=== PATIENT | male | born 1970 | race African-American/Black ===

== ENCOUNTER 2019-05-03 09:57 | Emergency (ER) | payer MEDICAID ==
[~2019-05-03] VITALS: Ht 175.3 cm; Wt 108.9 kg
[2019-05-03 10:46] LABS: Basophils # (auto) 0.1 uL; Basophils % (auto) 0.7 % (0.0-2.0); Eosinophils # (auto) 0.2 uL; Eosinophils % (auto) 1.7 % (0.0-7.0); Hematocrit 44.4 % (41.0-53.0); Lymphocytes # (auto) 1.9 uL; Lymphocytes % (auto) 19.7 % (10.0-50.0); Mean Corpuscular Hemoglobin 29.2 pg (28.0-32.0); Mean Corpuscular Hgb Conc. 33.8 g/dL (32.0-36.0); Mean Corpuscular Volume 86.3 fL (80.0-100.0); Neutrophils # (auto) 6.5 uL; Neutrophils % (auto) 67.9 % (37.0-80.0); Platelet Count (auto) 323 10^3/uL (140-450); Red Blood Cells 5.14 10^6/uL (4.5-5.90); Red Cell Distribution Width 15.4 % (11.8-14.3); White Blood Cell 9.6 10^3/uL (4.4-10.8)
[2019-05-03 11:08] LABS: Albumin 4.1 g/dL (3.4-5.0); Calcium 9.8 mg/dL (8.5-10.1); Potassium 3.7 mmol/L (3.5-5.1)
[2019-05-03 11:12] LABS: BUN/Creatinine Ratio 8.4; Bilirubin, Total 0.5 mg/dL (0.2-1.0); Total Protein 8.2 g/dL (6.4-8.2)
[2019-05-03] MEDS ORDERED: IOHEXOL 300 MG/ML 100ML BOTTLE IJ ONE (11:32)
[2019-05-03 11:49] LABS: Urine Bacteria NONE SEEN /hpf (None Seen); Urine Blood 3+ /uL (Negative); Urine Hyaline Cast FEW /lpf (0 - 2); Urine Mucus FEW (None Seen); Urine Specific Gravity 1.018 (1.001-1.035); Urine WBC 20 /hpf (0 - 3)
[2019-05-03] MEDS ORDERED: SODIUM CHLORIDE 0.9% 1,000 ML IV ONE (12:15)
[2019-05-03] MEDS ORDERED: KETOROLAC TROMETH 30 MG/ML 1ML VIAL IV ONE (12:15)
[2019-05-03 13:12] VITALS: BP 126/73
[2019-05-03] MEDS ORDERED: cefTRIAXone 1GM/50ML D5W 50 ML IV ONE (14:15)
== END 2019-05-03 14:31 | disposition home or self-care (01) ==
LOC: ER 10:05
DX: N43.3 Hydrocele, unspecified (principal); R31.9 Hematuria, unspecified; Z85.46 Personal history of malignant neoplasm of prostate; Z87.442 Personal history of urinary calculi; J45.909 Unspecified asthma, uncomplicated
CPT/HCPCS: 36415; 74177; 76870; 80053; 81001; 85025; 96365; 96375; 99284; J0696; J1885; Q9967

== ENCOUNTER 2023-01-28 15:14 | Emergency (ER) | payer MEDICAID ==
[~2023-01-28] VITALS: Ht 175.3 cm; Wt 105.8 kg
[2023-01-28 15:14] VITALS: BP 123/83; PULSE 69; RESP 16; O2SAT 95
== END 2023-01-28 22:24 | disposition left against medical advice (07) ==
LOC: ER 15:14
DX: T18.8XXA Foreign body in other parts of alimentary tract, initial encounter (principal); J45.909 Unspecified asthma, uncomplicated; F17.210 Nicotine dependence, cigarettes, uncomplicated; Z85.9 Personal history of malignant neoplasm, unspecified; W44.8XXA Other foreign body entering into or through a natural orifice, initial encounter; Y93.89 Activity, other specified; Y92.89 Other specified places as the place of occurrence of the external cause; Y99.8 Other external cause status
CPT/HCPCS: 70360

== ENCOUNTER 2023-05-06 20:15 | Emergency (ER) | payer MEDICAID ==
[~2023-05-06] VITALS: Ht 175.3 cm; Wt 109.1 kg
[2023-05-06 20:40] VITALS: BP 132/74; PULSE 72; RESP 15; TEMP 97.5; O2SAT 98
== END 2023-05-06 23:33 | disposition home or self-care (01) ==
LOC: ER 20:15
DX: M79.18 Myalgia, other site (principal); M54.50 Low back pain, unspecified; J45.909 Unspecified asthma, uncomplicated; F17.210 Nicotine dependence, cigarettes, uncomplicated

== ENCOUNTER 2023-12-17 14:37 | Emergency (ER) | payer MEDICAID ==
[~2023-12-17] VITALS: Ht 175.3 cm; Wt 106.0 kg
[2023-12-17 15:00] VITALS: BP 137/84; PULSE 72; RESP 18; TEMP 97.7; O2SAT 99
[2023-12-17] MEDS: KETOROLAC TROMETH 60MG/2ML VIAL IM ONE (15:41)
[2023-12-17] MEDS ORDERED: TRAM-626 PO (15:57)
== END 2023-12-17 16:05 | disposition home or self-care (01) ==
LOC: ER 14:37
DX: M77.8 Other enthesopathies, not elsewhere classified (principal); J45.909 Unspecified asthma, uncomplicated; F17.210 Nicotine dependence, cigarettes, uncomplicated
CPT/HCPCS: 73030; 96372; 99283; J1885

== ENCOUNTER 2024-04-09 08:22 | Inpatient (IN) | payer MEDICAID ==
[~2024-04-09] VITALS: Ht 175.3 cm; Wt 103.7 kg
[~2024-04-09 08:22] MED LIST: TRAM-626 PO
--- NOTE | 2024-04-09 08:40 | ECG ---
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
[2024-04-09] MEDS: ALBUTEROL SULF 2.5 MG/0.5ML(0.5%) NEB SOLN NEB ONE (10:32)
[2024-04-09] MEDS: IPRATROPIUM BROM 0.5 MG/2.5ML INH SOL NEB ONE (10:33)
[2024-04-09] MEDS: methylPREDNISolone SOD SUCC 125 MG/2 ML VL IV ONE (10:39)
[2024-04-09 11:16] LABS: Basophils # (auto) 0 10 ^3/uL (0-0.2); Basophils % (auto) 0.3 % (0.0-2.0); Eosinophils # (auto) 0.1 10 ^3/uL (0-0.8); Eosinophils % (auto) 0.6 % (0.0-7.0); Hematocrit 46.6 % (41.0-53.0); Hemoglobin 15.6 g/dL (13.5-17.5); Lymphocytes # (auto) 1.1 10 ^3/uL (0.4-5.4); Lymphocytes % (auto) 8.4 % (10.0-50.0); Mean Corpuscular Hemoglobin 29.5 pg (28.0-32.0); Mean Corpuscular Hgb Conc. 33.5 g/dL (32.0-36.0); Mean Corpuscular Volume 88.1 fL (80.0-100.0); Monocytes # (auto) 1.5 10 ^3/uL (0-1.3); Monocytes % (auto) 11.2 % (0.0-12.0); Neutrophils # (auto) 10.5 10 ^3/uL (1.6-8.6); Neutrophils % (auto) 79.5 % (37.0-80.0); Nucleated Red Blood Cells % 0.1 %; Platelet Count (auto) 272 10^3/uL (140-450); Red Blood Cells 5.29 10^6/uL (4.5-5.90); Red Cell Distribution Width 15.5 % (11.8-14.3); White Blood Cell 13.2 10^3/uL (4.4-10.8)
--- NOTE | 2024-04-09 11:36 | ED.PDOC ---
History of Present Illness HPI Comments 54 y/o M, with a Hx of asthma, tobacco use, and prostate CA, presents with c/o shortness of breath, cough, chest and throat pain, and fever, today. Patient endorses on unprovoked onset of difficulty breathing and cough that has been progressively worsening since last night, with additional onset of remaining symptoms, this morning. Patient comments on no recent sick contact, travel, or any additional relevant or pertinent Hx. He denies having any chills, nausea, vomiting, palpitations, or other associated symptoms or modifiers at this time. Chief Complaint: Shortness of Breath Time Seen by MD: 09:45 Primary Care Provider: EVELIA Hawkins Notes: Nurses Notes, Medications, Allergies Allergies: Uncoded Allergies: UNKOWN (Allergy, Severe, 04/09/24) Home Meds Active Scripts Tramadol HCl (Tramadol HCl) 50 Mg Tab, 50 MG PO BID, #20 TAB Prov:GAL DEL TORO KAELYN 12/17/23 Information Source: Patient Mode of Arrival: Ambulatory Severity: Moderate Timing: Days Duration: Since onset Prehospital treatment: None Past Medical History PAST MEDICAL HISTORY: Asthma, Cancer (Prostate cancer treated with radiation) Surgical History: Denies all surgeries Family History Family History: Reviewed,noncontributory to illness Social History Smoker: Cigarettes Alcohol: Denies ETOH Use Drugs: Denies Drug Use Lives In: Home Constitutional: reports: fever EENTM: reports: throat pain Respiratory: reports: cough, shortness of breath Cardiovascular: reports: chest pain All Other Systems: Reviewed and Negative (negative unless otherwise stated above or in HPI) Physical Exam General Appearance: Moderate Distress HEENT: Normal ENT Inspection, Pharynx Normal, TMs Normal Neck: Full Range of Motion, Non-Tender, Normal, Normal Inspection Respiratory: Chest Non-Tender, No Accessory Muscle Use, Wheezing Cardiovascular: No Edema, No JVD, No Murmur, No Gallop, Normal Peripheral Pulses, Regular Rate/Rhythm Breast Exam: Deferred Gastrointestinal: No Organomegaly, Non Tender, No Pulsatile Mass, Normal Bowel Sounds, Soft Genitalia: Deferred Pelvic: Deferred Rectal: Deferred Extremities: No calf tenderness, Normal capillary refill, Normal inspection, Normal range of motion, Non-tender, No pedal edema Musculoskeletal : Apperance: Normal Neurologic: Alert, 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 Was a procedure done?: No EKG EKG : Pulse Rate (adult): 95 [place]: Normal Cardiac Rhythm: NSR Block: None Hypertrophy: None ST: Normal Differential Dx Considerations may include: viral syndrome, asthma exacerbation, URI, bronchitis, PNA X-Ray, Labs, Meds, VS Vital Signs Date Time Temp Pulse Resp B/P (MAP) Pulse Ox O2 Delivery O2 Flow Rate FiO2 04/09/24 11:36 95 04/09/24 10:35 16 96 Room Air* 0 21 04/09/24 09:16 98.6 91 20 123/74 (90) 94 98.6 04/09/24 08:39 95 04/09/24 08:33 99.3 97 18 133/92 (106) 97 Lab Test 04/09/24 10:55 Range/Units White Blood Count 13.2 H 4.4-10.8 10^3/uL Red Blood Count 5.29 4.5-5.90 10^6/uL Hemoglobin 15.6 13.5-17.5 g/dL Hematocrit 46.6 41.0-53.0 % Mean Corpuscular Volume 88.1 80.0-100.0 fL Mean Corpuscular Hemoglobin 29.5 28.0-32.0 pg Mean Corpuscular Hemoglobin Concent 33.5 32.0-36.0 g/dL Red Cell Distribution Width 15.5 H 11.8-14.3 % Platelet Count 272 140-450 10^3/uL Mean Platelet Volume 7.9 6.9-10.8 fL Neutrophils (%) (Auto) 79.5 37.0-80.0 % Lymphocytes (%) (Auto) 8.4 L 10.0-50.0 % Monocytes (%) (Auto) 11.2 0.0-12.0 % Eosinophils (%) (Auto) 0.6 0.0-7.0 % Basophils (%) (Auto) 0.3 0.0-2.0 % Neutrophils # (Auto) 10.5 H 1.6-8.6 10 ^3/uL Lymphocytes # (Auto) 1.1 0.4-5.4 10 ^3/uL Monocytes # (Auto) 1.5 H 0-1.3 10 ^3/uL Eosinophils # (Auto) 0.1 0-0.8 10 ^3/uL Basophils # (Auto) 0 0-0.2 10 ^3/uL Nucleated Red Blood Cells 0.1 % Sodium Level 140 136-145 mmol/L Potassium Level 3.5 3.5-5.1 mmol/L Chloride Level 104 98-107 mmol/L Carbon Dioxide Level 26 20-31 mmol/L Anion Gap 10 5-15 Blood Urea Nitrogen 9 9-23 mg/dL Creatinine 1.02 0.700-1.30 mg/dL Glomerular Filtration Rate Calc 88 >90 mL/min BUN/Creatinine Ratio 8.8 L 10.0-20.0 Serum Glucose 98 74-106 mg/dL Calcium Level 10.4 8.7-10.4 mg/dL Current Medications Medications (Trade) Dose Ordered Sig/Lonnie Route Start Time Stop Time Status Last Admin Methylprednisolone Sodium Succinate (Solu Medrol) 125 mg ONCE ONCE IV 04/09/24 10:15 04/09/24 10:16 DC 04/09/24 10:39 Albuterol (Ventolin Medneb) 5 mg ONCE ONCE NEB 04/09/24 10:15 04/09/24 10:16 DC 04/09/24 10:32 Ipratropium [place] (Atrovent Medneb) 0.5 mg ONCE ONCE NEB 04/09/24 10:15 04/09/24 10:16 DC 04/09/24 10:33 Patient alert. Complaining of shortness a breath. Unable to take deep breaths. Slightly tachycardia. Blood pressure within normal limits. WBC elevated. Establish intravenous access. Was given steroid. Was given breathing treatment. Reviewed his previous visit. Explained to the patient. Continue cardiac monitoring. EKG reviewed does not show any acute changes. Chest x-ray reviewed does not show any acute changes. Time of 1ST Reevaluation: 10:15 Reevaluation 1ST: Unchanged Patient Education/Counseling: Diagnosis, Treatment Family Education/Counseling: No Family Present Additional Information I reviewed the following notes from patient's past medical encounters: ED physician documentation on 12/17/23 The following tests were ordered, and results were reviewed by me: BMP, CBC, CXR I reviewed and agreed with the following test results read by other providers: CXR I discussed treatment and results with medical personnel Departure 1 Departure Time of Disposition: 12:39 Impression: Primary Impression: Asthma exacerbation Qualified Codes: J45.901 - Unspecified asthma with (acute) exacerbation Additional Impressions: Acute respiratory distress Pneumonitis Disposition: ADMITTED INPATIENT Admit to: Med Surg Condition: Guarded Critical Care Note Critical Care Time?: No Stability Stability form required: No Heart Score Heart Score: Heart Score Response (Comments) Value History Slightly Suspicious 0 EKG Normal 0 Age 45-64 1 Risk Factors 1 or 2 risk factors 1 Troponin Normal limit 0 Total 2 I personally scribed for GRISEL SELLERS MD ([email or web address]) on 04/09/24 at 11:36. Electronically submitted by Stephon Ortega ([email or web address]). GRISEL SELLERS MD Apr 09, 2024 11:36
[2024-04-09 11:37] LABS: Chloride 104 mmol/L (98-107); Potassium 3.5 mmol/L (3.5-5.1); Sodium 140 mmol/L (136-145)
[2024-04-09 11:38] LABS: Calcium 10.4 mg/dL (8.7-10.4)
[2024-04-09 11:43] LABS: BUN/Creatinine Ratio 8.8 (10.0-20.0); Glucose 98 mg/dL (74-106)
[2024-04-09 11:47] LABS: Blood Urea Nitrogen 9 mg/dL (9-23)
--- NOTE | 2024-04-09 12:02 | DVH ---
CHEST RADIOGRAPH Indication: sob Technique: Single frontal view of the chest was obtained Comparison: None FINDINGS: Lines and Tubes: None Lungs: No focal consolidation. Pleura: No effusion. No pneumothorax. Cardiomediastinal contours: Unremarkable Bones: No acute osseous abnormality. IMPRESSION: 1. No acute cardiopulmonary disease.
[2024-04-09 12:10] LABS: Anion Gap 10 (5-15); Carbon Dioxide 26 mmol/L (20-31)
[2024-04-09] MEDS: cefTRIAXone 1GM/50ML D5W 50 ML IV ONE (14:25)
[2024-04-09] MEDS ORDERED: ALBUTEROL SULF 2.5 MG/0.5ML(0.5%) NEB SOLN NEB PRN (14:30)
[2024-04-09] MEDS ORDERED: IPRATROPIUM BROM 0.5 MG/2.5ML INH SOL NEB PRN (14:30)
[2024-04-09] MEDS ORDERED: ONDANSETRON HCL 4 MG/2 ML VIAL IV PRN (14:30)
[2024-04-09] MEDS ORDERED: MORPHINE SULFATE INJ 2 MG/ml SYRG IV PRN (14:30)
--- NOTE | 2024-04-09 14:39 | DVHHP2 ---
History of Present Illness Reason for Visit: Shortness of breath History of Present Illness This 54-year-old male with past medical history of asthma, tobacco use, and prostate cancer presents in the ED with a chief complaint of shortness of breath. The patient reports shortness of breath associated with sore throat productive cough, fever, and chest congestion started last night. The patient currently denies chest pain, shortness of breath, difficulty in breathing, or other acute symptoms. Past Medical History As stated in HPI Past Surgical History Denies Family History Reviewed, non-contributory to the management of this case. Past Social History The patient lives at home, denies smoking, alcohol or illicit drugs abuse. Review of Systems Constitutional: Yes: Malaise; No: Fever, Chills, Sweats, Weakness, Other Eyes: No: Pain, Vision change, Conjunctivae inflammation, Eyelid inflammation, Other, Redness ENT: Other (Sore throat); No: Ear pain, Ear discharge, Nose pain, Nose discharge, Nose congestion, Mouth pain, Mouth swelling, Throat pain, Throat swelling Respiratory: Cough, Shortness of breath, Other (Chest congestion); No: Dry, SOB with excertion, Wheezing, Hemoptysis, Pleuritic Pain, Sputum, Wheezing Cardiovascular: No: Chest Pain, Palpitations, Orthopnea, Paroxysmal Noc. Dyspnea, Edema, Lt Headedness, Other Gastrointestinal: No: Nausea, Vomiting, Abdominal Pain, Diarrhea, Constipation, Melena, Hematochezia, Other Genitourinary: No Dysuria, No Frequency, No Incontinence, No Hematuria, No Retention, No Other Musculoskeletal: No: other, neck pain, shoulder pain, arm pain, back pain, hand pain, leg pain, foot pain Skin: No: Rash, Lesions, Jaundice, Bruising, Other Neurological: No: Weakness, Numbness, Incoordination, Change in speech, Confusion, Seizures, Other Allergies: Uncoded Allergies: UNKOWN (Allergy, Severe, 04/09/24) Exam Vital Signs Vital Signs Date Time Temp Pulse Resp B/P (MAP) Pulse Ox O2 Delivery O2 Flow Rate FiO2 04/09/24 14:26 109 17 95 Room Air 04/09/24 14:26 98.4 127/86 (100) 98.4 04/09/24 10:35 0 21 General Appearance: Alert, Oriented X3, Cooperative, mild distress HEENT: Atraumatic, PERRLA, EOMI, Mucous membr. moist/pink Respiratory: Clear to auscultation, Normal air movement Cardiovascular: Regular rate, Normal S1, Normal S2, No murmurs Abdominal: Normal bowel sounds, Soft, No tenderness, No hepatospenomegaly Extremities: No clubbing, No cyanosis, No edema, Normal pulses Skin: No rashes, No breakdown, No significant lesion Neuro: Normal gait, Normal speech, Normal tone Psych/Mental Status: Mental status NL Labs/Xrays Labs Test 04/09/24 10:55 Range/Units White Blood Count 13.2 H 4.4-10.8 10^3/uL Red Blood Count 5.29 4.5-5.90 10^6/uL Hemoglobin 15.6 13.5-17.5 g/dL Hematocrit 46.6 41.0-53.0 % Mean Corpuscular Volume 88.1 80.0-100.0 fL Mean Corpuscular Hemoglobin 29.5 28.0-32.0 pg Mean Corpuscular Hemoglobin Concent 33.5 32.0-36.0 g/dL Red Cell Distribution Width 15.5 H 11.8-14.3 % Platelet Count 272 140-450 10^3/uL Mean Platelet Volume 7.9 6.9-10.8 fL Neutrophils (%) (Auto) 79.5 37.0-80.0 % Lymphocytes (%) (Auto) 8.4 L 10.0-50.0 % Monocytes (%) (Auto) 11.2 0.0-12.0 % Eosinophils (%) (Auto) 0.6 0.0-7.0 % Basophils (%) (Auto) 0.3 0.0-2.0 % Neutrophils # (Auto) 10.5 H 1.6-8.6 10 ^3/uL Lymphocytes # (Auto) 1.1 0.4-5.4 10 ^3/uL Monocytes # (Auto) 1.5 H 0-1.3 10 ^3/uL Eosinophils # (Auto) 0.1 0-0.8 10 ^3/uL Basophils # (Auto) 0 0-0.2 10 ^3/uL Nucleated Red Blood Cells 0.1 % Sodium Level 140 136-145 mmol/L Potassium Level 3.5 3.5-5.1 mmol/L Chloride Level 104 98-107 mmol/L Carbon Dioxide Level 26 20-31 mmol/L Anion Gap 10 5-15 Blood Urea Nitrogen 9 9-23 mg/dL Creatinine 1.02 0.700-1.30 mg/dL Glomerular Filtration Rate Calc 88 >90 mL/min BUN/Creatinine Ratio 8.8 L 10.0-20.0 Serum Glucose 98 74-106 mg/dL Calcium Level 10.4 8.7-10.4 mg/dL PROCEDURE(s): CXRP - CHEST PORTABLE REASON: sob ORDER NUMBER(s): [id number], ACCESSION NUMBER(s): [id number] CHEST RADIOGRAPH Indication: sob Technique: Single frontal view of the chest was obtained Comparison: None FINDINGS: Lines and Tubes: None Lungs: No focal consolidation. Pleura: No effusion. No pneumothorax. Cardiomediastinal contours: Unremarkable Bones: No acute osseous abnormality. IMPRESSION: 1. No acute cardiopulmonary disease. Assessment/Plan Assessment/Plan # Acute on chronic respiratory failure # possible asthma exacerbation # leukocytosis, possible pneumonia # Rule out influenza # Rule out COVID Admit to medical unit Med [facility] tx O2 supplement to keep O2 Sat > 92% Rios cultures Empiric antibiotic until cultures Chest x-ray in a.m. # Hx of Prostate cancer in remission # obesity Lifestyle modification counseled with diet, regular exercise, and weight loss DVT prophylaxis Medical plan discussed with patient and spouse Plan discussed with: Patient My Orders Orders - PIERCE ARSHAD INLETTER Procedure Category Date Status Time Rapid Influenza A&B LAB 04/09/24 Verified 14:27 Covid19 Antigen Justina LAB 04/09/24 Verified Urinalysis LAB 04/09/24 Verified 14:27 Admit ADMIT 04/09/24 Verified 14:27 Code Status CODE 04/09/24 Verified 14:27 Hydrocodone-Acet PHA 04/09/24 Verified 5/325mg Tab ([place] 14:30 Ondansetron Hcl PHA 04/09/24 Verified (Zofran) 14:30 Enoxaparin Sodium PHA 04/10/24 Verified (Lovenox) 10:00 Complete Blood Count LAB 04/10/24 Verified 04:00 Comprehensive LAB 04/10/24 Verified Metabolic Panel 04:00 Cardiac DIET 04/09/24 Verified Diet-2gna,Lofat,Lochol Dinner Condition: Fair FRANCIE 04/09/24 Verified 14:27 Acetaminophen Tablet PHA 04/09/24 Verified (Tylenol Tablet) 14:30 Morphine Sulfate PHA 04/09/24 Verified Injection 14:30 Albuterol Medneb PHA 04/09/24 Verified (Ventolin Medneb) 18:00 Albuterol Medneb PHA 04/09/24 Verified (Ventolin Medneb) 14:30 Ipratropium Medneb PHA 04/09/24 Verified (Atrovent Medneb) 14:30 Ipratropium Medneb PHA 04/09/24 Verified (Atrovent Medneb) 18:00 Blood Culture KANDACE 04/09/24 Verified 14:27 Respiratory Culture KANDACE 04/09/24 Verified W/ Gs 14:27 Urine Bacterial KANDACE 04/09/24 Verified Culture 14:27 Ceftriaxone Ivpb PHA 04/10/24 Verified Rocephin 09:00 Azithromycin 500mg/ PHA 04/10/24 Verified 250ml (Zithromax 50 10:00 Date of Service: Apr 09, 2024 Billing Provider: PIERCE ARSHAD Common Visit Codes: [id number] INP/OBS CARE (HIGH) PIERCE ARSHADP Apr 09, 2024 14:39
[2024-04-09 14:40] VITALS: BP 127/86; PULSE 109; RESP 17; TEMP 98.4; O2SAT 95
[2024-04-09 14:49] LABS: Urine Bacteria None Seen /hpf (None Seen)
[2024-04-09 15:16] LABS: Urine Blood TRACE /uL (Negative); Urine Clarity Clear (Clear); Urine Color Light-Yellow (Yellow); Urine Mucus FEW (None Seen); Urine Protein, UAD Negative (Negative); Urine Specific Gravity 1.015 (1.001-1.035); Urine Squamous Epithelial Cell None Seen /hpf (<5); Urine Urobilinogen Normal (Negative); Urine WBC <1 /hpf (0 - 3)
[2024-04-09] MEDS: AZITHROMYCIN 500MG/ 250ML 250 ML IV ONE (15:27)
[2024-04-09 19:30] VITALS: PULSE 72; RESP 20; O2SAT 95
[2024-04-09 19:41] VITALS: PULSE 103; RESP 20; O2SAT 95
[2024-04-09] MEDS: ALBUTEROL SULF 2.5 MG/0.5ML(0.5%) NEB SOLN NEB SCH (19:41)
[2024-04-09] MEDS: IPRATROPIUM BROM 0.5 MG/2.5ML INH SOL NEB SCH (19:41)
[2024-04-09 19:47] VITALS: PULSE 114; RESP 20; O2SAT 96
[2024-04-09 21:00] VITALS: BP 127/66; PULSE 109; RESP 20; TEMP 99.9; O2SAT 92
[2024-04-10] VITALS (17 sets, daily range): BP systolic 132–145; BP diastolic 72–81; PULSE 90–111; RESP 18–21; TEMP 97.6–99.6; O2SAT 91–100
[2024-04-10 04:51] LABS: Basophils # (auto) 0 10 ^3/uL (0-0.2); Basophils % (auto) 0.1 % (0.0-2.0); Eosinophils # (auto) 0 10 ^3/uL (0-0.8); Hematocrit 44.4 % (41.0-53.0); Hemoglobin 14.9 g/dL (13.5-17.5); Lymphocytes # (auto) 0.5 10 ^3/uL (0.4-5.4); Lymphocytes % (auto) 4.8 % (10.0-50.0); Mean Corpuscular Hemoglobin 29.4 pg (28.0-32.0); Mean Corpuscular Hgb Conc. 33.5 g/dL (32.0-36.0); Mean Corpuscular Volume 87.8 fL (80.0-100.0); Monocytes # (auto) 1.5 10 ^3/uL (0-1.3); Neutrophils # (auto) 7.9 10 ^3/uL (1.6-8.6); Neutrophils % (auto) 80.1 % (37.0-80.0); Platelet Count (auto) 256 10^3/uL (140-450); Red Blood Cells 5.05 10^6/uL (4.5-5.90); Red Cell Distribution Width 15.5 % (11.8-14.3); White Blood Cell 9.8 10^3/uL (4.4-10.8)
[2024-04-10 05:10] LABS: Alanine Aminotransferase 28 U/L (7-40); Albumin 4.6 g/dL (3.2-4.8); Alkaline Phosphatase 62 U/L (46-116); Anion Gap 8 (5-15); Aspartate Aminotransferase 19 U/L (13-40); BUN/Creatinine Ratio 10.5 (10.0-20.0); Bilirubin, Total 0.4 mg/dL (0.2-1.0); Blood Urea Nitrogen 10 mg/dL (9-23); Calcium 10.5 mg/dL (8.7-10.4); Carbon Dioxide 24 mmol/L (20-31); Chloride 108 mmol/L (98-107); Glucose 115 mg/dL (74-106); Potassium 3.8 mmol/L (3.5-5.1); Sodium 140 mmol/L (136-145); Total Protein 7.4 g/dL (5.7-8.2)
[2024-04-10 06:15] LABS: Rapid Influenza B Negative (Negative)
[2024-04-10 06:16] LABS: Rapid Influenza A Positive (Negative)
[2024-04-10 06:16] LABS: COVID19 ANTIGEN SOFIA FIA NEGATIVE (NEGATIVE)
--- NOTE | 2024-04-10 06:32 | DVH ---
CLINICAL INFORMATION: 54 years old, Male; shortness of breath. TECHNIQUE: Single AP portable chest radiograph was obtained. COMPARISON: XY CHEST PORTABLE on DOS: 04/09/24 FINDINGS: Lungs: Small ill-defined opacities in the right lung base, possibly infectious or inflammatory in janet ure. Mild atelectasis in the left lung base. [id number] elevation of the right hemidiaphragm. Cardiac: Heart size is within normal limits. Pulmonary vasculature: Unremarkable. Mediastinum/landy: Unremarkable. Bones: No acute osseous abnormality identified. Other: No other significant findings. IMPRESSION: 1. Ill-defined opacities in the right lung base, possibly infectious or inflammatory in nature. Ever elate with clinical findings. 2. Mild atelectasis in the left lung base.
[2024-04-10] MEDS: cefTRIAXone 1GM/50ML D5W 50 ML IV SCH (07:50)
[2024-04-10] MEDS: HYDROcodone-ACET 5/325MG TAB PO PRN (07:50)
[2024-04-10] MEDS: ENOXAPARIN SOD 40 MG/0.4 ML SYRINGE SC SCH (07:51)
[2024-04-10] MEDS: AZITHROMYCIN 500MG/ 250ML 250 ML IV SCH (09:30)
[2024-04-10] MEDS: SODIUM CHLORIDE 0.9% 1,000 ML IV ONE (10:56)
[2024-04-10] MEDS: OSELTAMIVIR 75 MG CAP PO SCH (10:56)
--- NOTE | 2024-04-10 11:06 | DVHPN2 ---
Subjective Patient reports that his symptoms have improved. Reviewed: Care Plan, H&P, Labs, Medications Changes from previous H/P or p: No Changes General: Per HPI Eyes: No Pain, No Vision change, No Conjunctivae inflammation, No Eyelid inflammation, No Other, No Redness ENT: No Ear pain, No Ear discharge, No Nose pain, No Nose discharge, No Nose congestion, No Mouth pain, No Mouth swelling, No Throat pain, No Throat swelling; Other (Sore throat) Cardiovascular: No Chest Pain, No Palpitations, No Orthopnea, No Paroxysmal Noc. Dyspnea, No Edema, No Lt Headedness, No Other Respiratory: Cough; No Dry; Shortness of breath; No SOB with excertion, No Wheezing, No Hemoptysis, No Pleuritic Pain, No Sputum; Other (Chest congestion) Gastrointestinal: No Nausea, No Vomiting, No Abdominal Pain, No Diarrhea, No Constipation, No Melena, No Hematochezia, No Other Genitourinary: No Dysuria, No Frequency, No Incontinence, No Hematuria, No Retention, No Other Musculoskeletal: No other, No neck pain, No shoulder pain, No arm pain, No back pain, No hand pain, No leg pain, No foot pain Skin: No Rash, No Lesions, No Jaundice, No Bruising, No Other Objective Vitals Vital Signs Date Time Temp Pulse Resp B/P (MAP) Pulse Ox O2 Delivery O2 Flow Rate FiO2 04/10/24 08:07 97.6 111 20 138/74 (95) 95 97.6 04/10/24 08:00 Nasal Cannula* 2 28 Intake/Output Intake and Output 04/10/24 07:00 Intake Total 300 ml Balance 300 ml Intake IV Total 300 ml General Appearance: Alert, Oriented X3, Cooperative, No acute distress HEENT: Atraumatic, PERRLA Lungs: Clear to auscultation, Normal air movement Cardiovascular: Normal S1, Normal S2 Abdomen: Normal bowel sounds, Soft, No tenderness Musculoskeletal: Normal sensory function, Normal motor function Psych/Mental Status: Mental status NL, Mood NL Medications Current Medications Medications Dose Ordered Sig/Lonnie Route Start Time Stop Time Status Last Admin Dose Admin Acetaminophen/ Hydrocodone Bitart 1 tab Q4HP PRN PO 04/09/24 14:30 04/10/24 07:50 1 TAB Ondansetron HCl 4 mg Q4HP PRN IV 04/09/24 14:30 Enoxaparin Sodium 40 mg DAILY SC 04/10/24 10:00 04/10/24 07:51 40 MG Acetaminophen 650 mg Q6HP PRN PO 04/09/24 14:30 Morphine Sulfate 2 mg Q4HPRN PRN IV 04/09/24 14:30 Albuterol 2.5 mg Q6HR NEB 04/09/24 18:00 04/10/24 07:03 2.5 MG Albuterol 2.5 mg Q4HPRN PRN NEB 04/09/24 14:30 Ipratropium [place] 0.5 mg Q4HPRN PRN NEB 04/09/24 14:30 Ipratropium [place] 0.5 mg Q6HR NEB 04/09/24 18:00 04/10/24 07:03 0.5 MG Ceftriaxone Sodium 50 ml @ 100 mls/hr DAILY@09 IV 04/10/24 09:00 04/10/24 07:50 100 MLS/HR Oseltamivir Phosphate 75 mg Q12HR PO 04/10/24 10:30 04/15/24 10:29 04/10/24 10:56 75 MG Laboratory Results Laboratory Tests 04/10/24 04:10 Chemistry Test 04/10/24 04:10 Albumin 4.6 g/dL (3.2-4.8) Calcium Level 10.5 mg/dL (8.7-10.4) H Total Protein 7.4 g/dL (5.7-8.2) LFT Test 04/10/24 04:10 Alanine Aminotransferase (ALT) 28 U/L (7-40) Alkaline Phosphatase 62 U/L (46-116) Aspartate Amino Transferase (AST) 19 U/L (13-40) Total Bilirubin 0.4 mg/dL (0.2-1.0) Urinalysis Test 04/09/24 14:39 Urine Color Light-yellow (Yellow) Urine Clarity Clear (Clear) Urine pH 6.0 (5.0-9.0) Urine Specific [place] 1.015 (1.001-1.035) Urine Protein Negative (Negative) Urine Ketones Negative (Negative) Urine Blood Trace /uL (Negative) H Urine Nitrite Negative (Negative) Urine Bilirubin Negative (Negative) Urine Urobilinogen Normal mg/dL (Negative) Urine Leukocyte Esterase Negative /uL (Negative) Urine RBC <1 /hpf (0 - 3) Urine WBC <1 /hpf (0 - 3) Urine Squamous Epithelial Cells None seen /hpf (<5) Urine Bacteria None seen /hpf (None Seen) Urine Mucus Few (None Seen) Urine Glucose Normal mg/dL (Normal) Microbiology Microbiology Date/Time Source Procedure Growth Status 04/09/24 14:39 Voided Urine Urine Culture - Preliminary Resulted Labs and/or images reviewed: Labs reviewed by me, Image(s) reviewed by me Assessment/Plan Assessment/Plan Impression: -acute hypoxic respiratory failure -pneumonia secondary to influenza -asthma with exacerbation -obesity -prostate cancer, currently in remission Plan: -continue bronchodilators -continue antibiotic therapy -start Tamiflu 75 mg p.o. b.i.d. -gentle IV hydration -reassess patient in a.m., possible discharge Total time spent with patient discussing and formulating plan of care: 35 minutes. This medical document was created using an electronic medical record system with [employer] dictation system. Although this document has been carefully reviewed, there may still be some phonetic and typographical errors. These areas are purely typographical due to imperfections of the software programs, and do not reflect any compromise in the patient's medical care. Plan discussed with: Patient, Other (RN) My Orders Orders - GLADYS COFFEY NP Procedure Category Date Status Time Oseltamivir 75mg PHA 04/10/24 In Process Capsule (Tamiflu 75mg 10:30 Sodium Chloride 0.9% PHA 04/10/24 In Process 10:30 Date of Service: Apr 10, 2024 Billing Provider: GLADYS COFFEY NP Common Visit Codes: [id number] INP/OBS CARE(HIGH) GLADYS COFFEY NP Apr 10, 2024 11:06
[2024-04-10] MEDS: ACETAMINOPHEN 325 MG TAB PO PRN (16:59)
[2024-04-11] VITALS (11 sets, daily range): BP systolic 125–147; BP diastolic 70–92; PULSE 85–92; RESP 14–18; TEMP 98.2–98.9; O2SAT 93–100
[2024-04-11] MEDS ORDERED: TAMIFLU PO (11:07)
[2024-04-11] MEDS ORDERED: ALBU0.084 IN (11:07)
--- NOTE | 2024-04-11 11:10 | DVHDS2 ---
Discharge Summary Date of Admission Apr 09, 2024 at 14:27 Date of Discharge: Apr 11, 2024 Admitting Diagnosis Acute on chronic respiratory failure Labs/Diagnostic Data: Laboratory Results Test 04/10/24 05:20 04/10/24 04:10 04/09/24 14:39 04/09/24 05:20 SARS-CoV-2 Antigen (Rapid) Negative (NEGATIVE) White Blood Count 9.8 10^3/uL (4.4-10.8) Red Blood Count 5.05 10^6/uL (4.5-5.90) Hemoglobin 14.9 g/dL (13.5-17.5) Hematocrit 44.4 % (41.0-53.0) Mean Corpuscular Volume 87.8 fL (80.0-100.0) Mean Corpuscular Hemoglobin 29.4 pg (28.0-32.0) Mean Corpuscular Hemoglobin Concent 33.5 g/dL (32.0-36.0) Red Cell Distribution Width 15.5 % (11.8-14.3) Platelet Count 256 10^3/uL (140-450) Mean Platelet Volume 8.1 fL (6.9-10.8) Neutrophils (%) (Auto) 80.1 % (37.0-80.0) Lymphocytes (%) (Auto) 4.8 % (10.0-50.0) Monocytes (%) (Auto) 15.0 % (0.0-12.0) Eosinophils (%) (Auto) 0.0 % (0.0-7.0) Basophils (%) (Auto) 0.1 % (0.0-2.0) Neutrophils # (Auto) 7.9 10 ^3/uL (1.6-8.6) Lymphocytes # (Auto) 0.5 10 ^3/uL (0.4-5.4) Monocytes # (Auto) 1.5 10 ^3/uL (0-1.3) Eosinophils # (Auto) 0 10 ^3/uL (0-0.8) Basophils # (Auto) 0 10 ^3/uL (0-0.2) Nucleated Red Blood Cells 0.0 % Sodium Level 140 mmol/L (136-145) Potassium Level 3.8 mmol/L (3.5-5.1) Chloride Level 108 mmol/L (98-107) Carbon Dioxide Level 24 mmol/L (20-31) Anion Gap 8 (5-15) Blood Urea Nitrogen 10 mg/dL (9-23) Creatinine 0.95 mg/dL (0.700-1.30) Glomerular Filtration Rate Calc 96 mL/min (>90) BUN/Creatinine Ratio 10.5 (10.0-20.0) Serum Glucose 115 mg/dL (74-106) Calcium Level 10.5 mg/dL (8.7-10.4) Total Bilirubin 0.4 mg/dL (0.2-1.0) Aspartate Amino Transferase (AST) 19 U/L (13-40) Alanine Aminotransferase (ALT) 28 U/L (7-40) Alkaline Phosphatase 62 U/L (46-116) Total Protein 7.4 g/dL (5.7-8.2) Albumin 4.6 g/dL (3.2-4.8) Urine Color Light-yellow (Yellow) Urine Clarity Clear (Clear) Urine pH 6.0 (5.0-9.0) Urine Specific [place] 1.015 (1.001-1.035) Urine Protein Negative (Negative) Urine Ketones Negative (Negative) Urine Blood Trace /uL (Negative) Urine Nitrite Negative (Negative) Urine Bilirubin Negative (Negative) Urine Urobilinogen Normal mg/dL (Negative) Urine Leukocyte Esterase Negative /uL (Negative) Urine RBC <1 /hpf (0 - 3) Urine WBC <1 /hpf (0 - 3) Urine Squamous Epithelial Cells None seen /hpf (<5) Urine Bacteria None seen /hpf (None Seen) Urine Mucus Few (None Seen) Urine Glucose Normal mg/dL (Normal) Influenza Type A Antigen Positive (Negative) Influenza Type B Antigen Negative (Negative) Other Laboratory Tests 04/10/24 04:10 Brief Hx & Hospital Course: History of Present Illness This 54-year-old male with past medical history of asthma, tobacco use, and prostate cancer presents in the ED with a chief complaint of shortness of breath. The patient reports shortness of breath associated with sore throat productive cough, fever, and chest congestion started last night. The patient currently denies chest pain, shortness of breath, difficulty in breathing, or other acute symptoms. Course of hospitalization: Patient was started on bronchodilators, IV hydration, and antibiotic therapy for community-acquired pneumonia. Patient's influenza came back positive for type A. Patient was started on Tamiflu 75 mg p.o. twice a day. Patient has been weaned off of oxygen. Clinically, he states that his breathing has not been a problem for the past 24 hours. Patient will be discharged home and continue with Tamiflu for a total of a five day course. He was to continue all previous home medications. Patient also will be given albuterol nebulizer medication, for his nebulizer machine at home. He was instructed to follow up with his PCP in 1-2 weeks. Physical examination General: Alert and Oriented x3. No acute distress. Well-nourished. Eyes: EOMI. Anicteric. HENT: Moist mucous membranes. Lungs: Clear to auscultation bilaterally. No accessory muscle use. Cardiovascular: Regular rate and rhythm. No murmur. No JVD. Abdomen: Soft, non-tender and non-distended. No palpable masses. Extremities: No edema. Non-tender. Skin: No rashes or lesions. Warm. Neurologic: No focal neurological deficits. CN II-XII grossly intact, but not individually tested. Psychiatric: Cooperative. Appropriate mood and affect. Total time spent with patient discussing and formulating plan of care: 35 minutes. This medical document was created using an electronic medical record system with [employer] dictation system. Although this document has been carefully reviewed, there may still be some phonetic and typographical errors. These areas are purely typographical due to imperfections of the software programs, and do not reflect any compromise in the patient's medical care. Condition at Discharge: Fair Final Diagnosis/Problems List Acute hypoxic respiratory failure Secondary Diagnosis: -pneumonia secondary to influenza -asthma with exacerbation -obesity -prostate cancer, currently in remission Discharge Disposition: Home Discharge Instruct/Medications Diet: Regular Follow Up/Referral: PCP in 1-2 weeks Medications: Tamiflu 75 mg p.o. b.i.d. for an additional four days Continue all home medications Albuterol nebulizer q.4 hours as needed for dyspnea. 36 Discharge Statement: "Patient was advised to return to the ER or call 911 if any headaches, dizziness, shortness of breath, chest pain, abdominal pain, bleeding, fevers, or worsening of medical condition. Patient was counseled about treatment plan, medications, possible side effects, patientverbalized understanding. All questions were answered to the best of my ability. This discharge took greater then 30 minutes in planning, reviewing documentation, counseling the patient, and discussing with other team members." ASSESSMENT ASSESSMENT Assessment Date of Service: Apr 11, 2024 Billing Provider: GLADYS COFFEY NP Common Visit Codes: 69908-XAF/OBS DISCH DAY >30min GLADYS COFFEY NP Apr 11, 2024 11:10
[2024-04-11] MEDS ORDERED: THROAT LOZENGES(CEPASTAT) MT PRN (14:15)
== END 2024-04-11 16:35 | disposition home or self-care (01) | DRG 141 ==
LOC: ER 08:22 → OVERFLOW 14:27 → WEST WING 04-10 14:49
PROVIDERS: ADMIT Registered Nurse; ATTEND Nurse Practitioner Acute Care
DX: J45.40 Moderate persistent asthma, uncomplicated (principal); J96.21 Acute and chronic respiratory failure with hypoxia; J10.00 Influenza due to other identified influenza virus with unspecified type of pneumonia; C61 Malignant neoplasm of prostate; F17.210 Nicotine dependence, cigarettes, uncomplicated; E66.9 Obesity, unspecified; Z92.3 Personal history of irradiation; Z68.33 Body mass index [BMI] 33.0-33.9, adult
CPT/HCPCS: 36415; 71045; 80048; 80053; 81001; 85025; 87040; 87086; 87426; 87804; 93005; 94640; G0378